=== PATIENT | male | born 1980 | race African-American/Black ===

== ENCOUNTER 2017-03-06 15:37 | Inpatient (IN) ==
--- NOTE | 2017-03-06 17:29 | Emergency Department Note ---
Disposition Clinical Impression: Diverticulitis Qualifiers: Diverticulitis site: unspecified part of intestinal tract Diverticulitis bleeding: without bleeding Diverticulitis complication: unspecified complication status Qualified Code(s): K57.92 - Diverticulitis of intestine, part unspecified, without perforation or abscess without bleeding Disposition: Admitted As Inpatient Condition: Good Referrals: NONE,PCP [Non-Partnered Physician] - Forms: Work/School Release, ED Satisfaction Letter Time of Disposition: 19:12 Abdominal Pain HPI - General Chief Complaint: ED Abdominal Pain Stated Complaint: RLQ Pain,fever Time Seen by Provider: 03/06/17 17:22 Source: patient Mode of arrival: ambulatory Limitations: no limitations Nursing Notes Reviewed: Yes Vital Signs Reviewed: Yes - History of Present Illness HPI Narrative: 36-year-old male who states was diagnosed with diverticulitis a few weeks back took antibiotics but did not complete them completely. Then again on Friday developed pain was started back on Levaquin and Flagyl his symptoms are not gotten any better. He's having pain across his lower abdomen. Pt Subjective Complaint: abdominal pain Onset (ago): day(s) Consistency: constant (4) Location: LLQ, RLQ, suprapubic Pain Severity: moderate Pain Scale: 7 Quality: aching, sharp Radiation: none Migration to: no migration Improves with: nothing Worsens with: nothing Associated symptoms: Reports: nausea, fever - Related Data Allergies Allergy/AdvReac Type Severity Reaction Status Date / Time No Known Allergies Allergy Verified 03/06/17 16:23 All systems ED: reviewed and negative except as stated. Constitutional: Denies: fever, chills, weakness, weight change Eyes: Denies: eye pain, eye discharge, vision change ENT ED: Denies: ear pain, throat pain, dental pain, hearing loss, epistaxis, congestion, dysphagia Cardiovascular: Denies: chest pain, palpitations, dyspnea on exertion, edema, syncope Respiratory: Denies: cough, dyspnea, wheezes, hemoptysis, stridor Gastrointestinal: Reports: abdominal pain. Denies: nausea, vomiting, diarrhea, constipation, hematemesis, melena, hematochezia Genitourinary: Denies: urgency, dysuria, frequency, hematuria Musculoskeletal: Denies: back pain, neck pain, arthralgia, myalgia Integumentary: Denies: rash, abrasion, lesions Neurological: Denies: headache, weakness, numbness, paresthesias, confusion, abnormal gait, vertigo Psychiatric: Denies: anxiety, depression, suicidal thoughts, homicidal thoughts , auditory hallucinations, visual hallucinations Endocrine: Denies: fatigue Hematological/Lymphatic: Denies: easy bleeding, easy bruising Allergic/Immunologic: Denies: facial swelling, urticaria Abdominal Pain PMH - Past Medical History Medical history: Reports: other Male Surgical History: Reports: no surgical history - Social History Smoking status: Never smoker Alcohol use: Reports: none Drug use: Reports: none Physical Exam - General Limitations: no limitations General appearance: alert - Head Head exam: atraumatic, normocephalic, normal inspection - Eye Eye exam: Present: normal appearance, PERRL, EOMI - ENT ENT exam: normal exam, normal oropharynx, mucous membranes moist - Neck Neck exam: Present: normal inspection, full ROM, trachea midline - Chest Chest inspection: Present: normal inspection, symmetric chest wall rise - Respiratory Respiratory exam: Present: normal lung sounds bilaterally - Cardiovascular Cardiovascular exam: Present: regular rate, normal rhythm, normal heart sounds - Abdominal Exam Abdominal exam: Present: tenderness. Absent: guarding, rebound Abdominal tenderness: Present: RLQ, LLQ - Extremities Exam Extremities exam: Present: normal inspection, full ROM. Absent: tenderness, pedal edema - Expanded Lower Extremity Exam Neurovascular/Tendon exam: Absent: motor deficit, sensory deficit, tendon deficit Gait: observed and normal - Back Exam Back exam: Present: normal inspection, full ROM. Absent: tenderness - Neurological Exam Neurological exam: Present: alert, oriented X3 - Psychiatric Psychiatric exam: Present: normal affect, normal mood - Skin Skin exam: Present: warm, dry, intact, normal color Course - Reevaluation(s) Reevaluation #1: 36-year-old who comes in with abdominal pain is getting worse. Patient was diagnosed with diverticulitis couple weeks ago was given antibiotics to complete a course he did get somewhat better and then when he stopped antibiotics after couple of days ago worse was restarted on antibiotics and is getting worse. He was on Levaquin and Flagyl. Time: 19:11 - Consultations Consultation #1: Discussed with , admit to hospitals. Time: 18:57 Consultation #2: Discussed with Mendy Perez nurse practitioner, admit Time: 19:11 Vital Signs Temperature 99.0 F 03/06/17 16:20 Pulse Rate 95 03/06/17 16:20 Respiratory Rate 18 03/06/17 16:20 Blood Pressure 132/88 03/06/17 16:20 O2 Sat by Pulse Oximetry 97 03/06/17 16:20 Temperature 99.0 F 03/06/17 16:20 Pulse Rate 90 03/06/17 17:32 Respiratory Rate 18 03/06/17 17:32 Blood Pressure 114/74 03/06/17 17:32 O2 Sat by Pulse Oximetry 100 03/06/17 17:32 Oxygen Delivery Oxygen Delivery Room Air Abdominal Pain - Lab Data Lab results reviewed: Yes I reviewed the patient's lab results. Result diagrams: 03/06/17 17:33 03/06/17 17:33 Lab Results 03/06/17 03/06/17 03/06/17 Range/Units 17:25 17:33 17:33 WBC 12.2 H (4.3-11.1) K/mcL RBC 4.83 (4.19-5.50) M/mcL Hgb 13.9 (12.9-16.9) g/dL Hct 42.9 (37.5-50.1) % MCV 88.8 (83.0-100.0) fL MCH 28.8 (28.0-33.3) pg MCHC 32.4 (31.6-35.5) g/dL RDW 13.5 (11.5-14.5) % Plt Count 169 (140-400) K/mcL MPV 10.1 (9.4-12.4) fL Immature Gran % 0.6 (0-4) % Seg Neutrophils % 71.2 % Lymphocytes % 12.6 % Monocytes % 12.4 % Eosinophils % 3.0 % Basophils % 0.2 % Neutrophils # 8.6 (1.6-8.9) K/mcL Lymphocytes # 1.5 (0.6-4.6) K/mcL Monocytes # 1.5 H (0.0-1.3) K/mcL Eosinophils # 0.4 (0.0-0.6) K/mcL Basophils # 0.0 (0.0-0.2) K/mcL Sodium 137 (136-145) mEq/L Potassium 3.7 (3.5-4.5) mEq/L Chloride 103 (98-109) mEq/L Carbon Dioxide 26 (19-29) mEq/L BUN 11 (8-26) mg/dL Creatinine 1.37 H (0.72-1.25) mg/dL Est GFR ( Amer) > 60 (> 60) Est GFR (Non-Af Amer) 58 L (> 60) BUN/Creatinine Ratio 8 (6-26) Glucose 90 (70-99) mg/dL Calculated Osmolality 283 (280-300) Lactic Acid (0.5-2.2) mmol/L Calcium 9.7 (8.6-10.8) mg/dL Total Bilirubin 0.5 (0.2-1.2) mg/dL Direct Bilirubin 0.3 (0.0-0.5) mg/dL Indirect Bilirubin 0.2 (0.0-1.2) mg/dL AST 13 (5-34) Units/L ALT 29 (0-55) Units/L Alkaline Phosphatase 61 (38-126) Units/L Serum Total Protein 7.8 (6.0-8.3) g/dL Albumin 3.3 L (3.5-5.0) g/dL Globulin 4.5 H (2.4-3.5) g/dL Albumin/Globulin Ratio 0.7 L (1.1-2.2) Amylase 44 (25-125) Units/L Lipase 34 (8-78) Units/L Urine Color Dark Yellow (Yellow) Urine Clarity Clear (Clear) Urine pH 6.0 (5.0-8.0) pH Units Ur Specific [place] 1.029 H (1.010-1.025) Urine Protein 30 H (Neg-Trace) mg/dL Urine Glucose (UA) Normal (Normal) mg/dL Urine Ketones Trace H (Negative) mg/dL Urine Blood Negative (Negative) Urine Nitrite Negative (Negative) Urine Bilirubin Negative (Negative) Urine Urobilinogen Normal (Normal) mg/dL Ur Leukocyte Esterase Small H (Negative) Urine Microscopic RBC 5-15 H (0-3) per hpf Urine Microscopic WBC 5-15 H (0-3) per hpf Ur Squamous Epith Cells Many H (None-Few) per lpf Urine Bacteria None Seen (None-Few) per hpf Hyaline Casts Few (None-Few) per lpf Ur Culture Indicated? YES A (NO) 03/06/17 Range/Units 17:33 WBC (4.3-11.1) K/mcL RBC (4.19-5.50) M/mcL Hgb (12.9-16.9) g/dL Hct (37.5-50.1) % MCV (83.0-100.0) fL MCH (28.0-33.3) pg MCHC (31.6-35.5) g/dL RDW (11.5-14.5) % Plt Count (140-400) K/mcL MPV (9.4-12.4) fL Immature Gran % (0-4) % Seg Neutrophils % % Lymphocytes % % Monocytes % % Eosinophils % % Basophils % % Neutrophils # (1.6-8.9) K/mcL Lymphocytes # (0.6-4.6) K/mcL Monocytes # (0.0-1.3) K/mcL Eosinophils # (0.0-0.6) K/mcL Basophils # (0.0-0.2) K/mcL Sodium (136-145) mEq/L Potassium (3.5-4.5) mEq/L Chloride (98-109) mEq/L Carbon Dioxide (19-29) mEq/L BUN (8-26) mg/dL Creatinine (0.72-1.25) mg/dL Est GFR ( Amer) (> 60) Est GFR (Non-Af Amer) (> 60) BUN/Creatinine Ratio (6-26) Glucose (70-99) mg/dL Calculated Osmolality (280-300) Lactic Acid 0.8 (0.5-2.2) mmol/L Calcium (8.6-10.8) mg/dL Total Bilirubin (0.2-1.2) mg/dL Direct Bilirubin (0.0-0.5) mg/dL Indirect Bilirubin (0.0-1.2) mg/dL AST (5-34) Units/L ALT (0-55) Units/L Alkaline Phosphatase (38-126) Units/L Serum Total Protein (6.0-8.3) g/dL Albumin (3.5-5.0) g/dL Globulin (2.4-3.5) g/dL Albumin/Globulin Ratio (1.1-2.2) Amylase (25-125) Units/L Lipase (8-78) Units/L Urine Color (Yellow) Urine Clarity (Clear) Urine pH (5.0-8.0) pH Units Ur Specific [place] (1.010-1.025) Urine Protein (Neg-Trace) mg/dL Urine Glucose (UA) (Normal) mg/dL Urine Ketones (Negative) mg/dL Urine Blood (Negative) Urine Nitrite (Negative) Urine Bilirubin (Negative) Urine Urobilinogen (Normal) mg/dL Ur Leukocyte Esterase (Negative) Urine Microscopic RBC (0-3) per hpf Urine Microscopic WBC (0-3) per hpf Ur Squamous Epith Cells (None-Few) per lpf Urine Bacteria (None-Few) per hpf Hyaline Casts (None-Few) per lpf Ur Culture Indicated? (NO) - Radiology Data Radiology results reviewed: Yes I reviewed the patient's radiology results. Abdomen/Pelvis CT 03/06/17 17:26 IMPRESSION: Right lower quadrant inflammatory changes centered about the terminal ileum and cecum worsened from 02/13/2017. Normal appendix. No definite extraluminal gas. Small foci of extraluminal soft tissue density that may represent ill-defined fluid collections versus phlegmon. Perforation not excluded. The underlying cause of the inflammatory process is uncertain with the differential including infectious etiologies versus inflammatory bowel disease versus diverticulitis. Trace volume of free fluid in the pelvis. D/ / Fabián Martin MD / Fabián Martin MD Interpreting Provider: Fabián Martin MD
[2017-03-06 17:34] LABS: Bilirubin,Urine Negative (Negative); Blood,Urine Negative (Negative); Clarity,Urine Clear (Clear); Color,Urine Dark Yellow (Yellow); Glucose,Urine (UA) Normal (Normal); Ketones,Urine Trace mg/dL (Negative); Leukocyte Esterase,Urine Small (Negative); Nitrite,Urine Negative (Negative); Protein,Urine 30 mg/dL (Neg-Trace); Specific Gravity,Urine 1.029 (1.010-1.025); Urobilinogen,Urine Normal (Normal)
[2017-03-06 17:36] LABS: Bacteria,Urine None Seen per hpf (None-Few); Hyaline Casts,Urine Few per lpf (None-Few); Squamous Epithelial Cell,Urine Many per lpf (None-Few)
[2017-03-06 17:40] LABS: Basophils % 0.2 %; Eosinophils # 0.4 K/mcL (0.0-0.6); Hematocrit 42.9 % (37.5-50.1); Hemoglobin 13.9 g/dL (12.9-16.9); Immature Granulocytes % 0.6 % (0-4); Lymphocytes # 1.5 K/mcL (0.6-4.6); Lymphocytes % 12.6 %; Mean Corpuscular HGB Conc 32.4 g/dL (31.6-35.5); Mean Corpuscular Hemoglobin 28.8 pg (28.0-33.3); Mean Corpuscular Volume 88.8 fL (83.0-100.0); Mean Platelet Volume 10.1 fL (9.4-12.4); Monocytes # 1.5 K/mcL (0.0-1.3); Monocytes % 12.4 %; Neutrophils # 8.6 K/mcL (1.6-8.9); Platelet Count 169 K/mcL (140-400); Red Blood Count 4.83 M/mcL (4.19-5.50); Red Cell Distribution Width 13.5 % (11.5-14.5); Segmented Neutrophils % 71.2 %
[2017-03-06 17:56] LABS: Alanine Aminotransferase 29 Units/L (0-55); Albumin 3.3 g/dL (3.5-5.0); Albumin/Globulin Ratio 0.7 (1.1-2.2); Alkaline Phosphatase 61 Units/L (38-126); Amylase 44 Units/L (25-125); Aspartate Amino Transferase 13 Units/L (5-34); BUN/Creatinine Ratio 8 (6-26); Bilirubin,Direct 0.3 mg/dL (0.0-0.5); Bilirubin,Indirect 0.2 mg/dL (0.0-1.2); Bilirubin,Total 0.5 mg/dL (0.2-1.2); Blood Urea Nitrogen 11 mg/dL (8-26); Calcium 9.7 mg/dL (8.6-10.8); Carbon Dioxide 26 mEq/L (19-29); Chloride 103 mEq/L (98-109); Globulin 4.5 g/dL (2.4-3.5); Glucose 90 mg/dL (70-99); Lipase 34 Units/L (8-78); Osmolality,Calculated 283 (280-300); Potassium 3.7 mEq/L (3.5-4.5); Sodium 137 mEq/L (136-145); Total Protein 7.8 g/dL (6.0-8.3); eGFR For African Americans > 60 (> 60); eGFR For Non-African Americans 58 (> 60)
[2017-03-06] MEDS ORDERED: Piperacillin/Tazobactam 3.375 GM in D5% in Water (Mini-Bag+) 100 ML IVPB ONE (18:57)
--- NOTE | 2017-03-06 20:50 | Event Note ---
Date of Encounter: 03/06/17 Time of Encounter: 20:46 Patient seen and examined with medical fee clerk. On 02/13 patient had right lower quadrant abdominal pain and a CT scan of the abdomen and pelvis with oral and IV contrast showed concern for diverticulitis and he received 10 days of ciprofloxacin Flagyl but stopped after 5 days only because his symptoms resolved. On Friday 4 days ago he started having similar symptoms seen his PCP was advised him to stay NPO and gave him a course of Levaquin and Flagyl of which he took 3 days. He notices no improvement in his symptoms and therefore came to the emergency room. A noncontrast CT scan of abdomen and pelvis without oral or IV contrast showed similar inflammatory process in the right lower quadrant. Appendix has been normal in both CT scans. No family history of inflammatory bowel disease. He has been having subjective fevers and shows at home. Differentials for the current presentation included an infectious process causing enteritis in the right lower quadrant such as salmonella, inflammatory process and advised him that several weeks after discharge she has to be evaluated by gastroenterology versus diverticulitis. We will start broader antibiotics in the form of Zosyn and flagyl. Hydrate, keep NPO. Surgery consultation
[2017-03-06] MEDS ORDERED: Acetaminophen 325 MG TABLET PO PRN (21:02)
[2017-03-06] MEDS ORDERED: *HR* OxyCODONE Immed Rel 5 MG TABLET PO PRN (21:02)
[2017-03-06] MEDS ORDERED: Naloxone 0.4 MG/ML INJ IVP PRN (21:02)
[2017-03-06] MEDS ORDERED: Ondansetron 4 MG/2 ML VIAL IVP PRN (21:02)
[2017-03-06] MEDS ORDERED: *HR* Morphine 2 MG/ML SYRINGE IVP PRN (21:02)
--- NOTE | 2017-03-06 21:12 | Internal Med History&Physical ---
Date of Encounter: 03/06/17 Time of Encounter: 21:06 Assessment and Plan (1) Abdominal pain Current visit: Yes Status: Acute 36 y/o Male cc of LLQ abdominal pain 2 weeks prior diagnosed with diverticulitis and started on 10 days FOR fragile which he only completed the first [address] scan abdomen/pelvis w/o contrast: Right lower quadrant inflammatory changes centered about the terminal ileum and cecum worsened from previous CT. Normal appendix. No definite extraluminal gas. Perforation not excluded. Denies family hx of inflammatory bowel disease 2nd to infectious process, diverticulits Plan: non surgical abdomen flagyl and zosyn NPO IVF stool panel Sugery notified Qualifiers: Abdominal location: left lower quadrant Qualified Code(s): R10.32 - Left lower quadrant pain (2) DVT prophylaxis Current visit: Yes Status: Acute heparin SQ Internal Medicine - H&P: HPI Chief complaint: abdominal pain Admitted From: Home Plans for Post Hospital Care: Home History of present illness: Mr. Levin is a 36 year old male hx of asthma presents with chief complaint of abdominal pain. Patient's abdominal pain started on Friday, June 12. Described as lower abdominal pain, sharp, mostly localized to right lower quadrant without radiation, associated with subjective fevers, chills, worsens with oral intake either fluids or solid food. Denies nausea, vomiting, melena, hematochezia, mucus in stool. Reports his stool has been loose. Reports increased urinary frequency but denies dysuria, hematuria. 2 weeks ago patient had similar symptoms of left lower quadrant sharp abdominal pain and was diagnosed with diverticulitis by his primary care physician. At that time CT scan showed Focal inflammatory change in terminal ileum, cecum and extraluminal gas adjacent to the cecum and terminal ileum, rule out appendicitis , and with contained perforation. He was given 10 days of Cipro and Flagyl. After 2 days of antibiotic treatment patient states his symptoms of left lower quadrant pain resolved, and by day 6 he stopped taking his antibiotics. As stated above last Friday patient started having abdominal pain the same location again and followed up with the nurse practitioner who prescribed him Levaquin and Flagyl however this does not improve his symptoms and thus he decided to show up to the ER. Past Med Surg Social Fam HX - Past Medical History Medical history: asthma, other Psychiatric history: no psych history - Past Surgical History Surgical History: no surgical history - Social History Smoking Status: Former smoker Smokeless Tobacco Status: No Alcohol use: none Drug use: none - Family History Mother Hx Family Cardiac Disorders: No Hx Family Respiratory Disorders: No Hx Family Cancer: No Hx Family GI Disorders: No Hx Family Genitourinary Disorders: No Hx Family Endocrine Disorder: No Hx Family Musculoskeletal Disorders: No Internal Medicine - H&P: Meds Albuterol Sulfate [Ventolin Hfa] 2 puff IH Q4H PRN 03/06/17 [History] Valacyclovir HCl [Valtrex] 1,000 mg PO AD 03/06/17 [History] levoFLOXacin [Levofloxacin] 750 mg PO DAILY 03/06/17 [History] metroNIDAZOLE [Flagyl] 500 mg PO TID 03/06/17 [History] Allergies No Known Allergies Allergy (Verified 03/06/17 16:23) All Systems PM: A 10-system review of systems was performed and is negative for pertinent findings except as documented above in the HPI. Review of systems: Constitutional: Reports subjective fevers, chills HEENT: Denies headache, vision changes, neck pain, sore throat, rhinorrhea Heart: Denies chest pain palpitations Lungs: Denies shortness of breath cough Abdomen: Reports sharp right lower quadrant abdominal pain that extends to the left lower quadrant, loose stools since Friday and one bite of diarrhea last night. Denies nausea, vomiting. Back: Denies back pain Kidney: Denies dysuria, hematuria. Reports frequency Extremities: Denies swelling, pain Neuro: Denies numbness, and tingling - Constitutional Vitals: Temp Pulse Resp BP Pulse Ox 98.1 F 90 14 111/71 97 03/06/17 20:25 03/06/17 20:25 03/06/17 20:25 03/06/17 20:25 03/06/17 20:25 - Other Additional findings: General: Alert and oriented to place time and situation. Without distress HEENT: Head atraumatic, normocephalic, EOMI, PERRLA, \ absent Lymphadenopathy, Moist Mucous Membranes, Heart: Sinus tachycardia without murmur Lungs: Clear to auscultation bilaterally Abdomen: Abdomen is soft, tender in the left lower quadrant, left mid quadrant, without signs of peritonitis, without guarding, with bowel sounds. Extremities: Absent pedal edema, Neuro: Cranial nerves II through XII intact, sensation equal bilaterally, strength upper and lower extremity 5/5, alert oriented 3 Vascular: Pedal and radialpulses 2 out of 4 Internal Med - H&P Results - Labs CBC & Chem 7: 03/06/17 17:33 03/06/17 17:33
[2017-03-06] MEDS: 0.9 % Sodium Chloride 1,000 ML IVC SCH (21:46)
[2017-03-06 23:25] LABS: Adenovirus F 40/41 PCR Not detected (Not detect); Astrovirus PCR Not detected (Not detect); C.difficile Toxin A/B by PCR See reflex test (Not detect); Campylobacter by PCR Not detected (Not detect); Cryptosporidium by PCR Not detected (Not detect); Cyclospora cayetanensis PCR Not detected (Not detect); E. coli O157 by PCR Not detected (Not detect); Entamoeba histolytica PCR Not detected (Not detect); Enteroaggregative E.coli(EAEC) Not detected (Not detect); Enteropathogenic E.coli(EPEC) Not detected (Not detect); Enterotoxigenic E.coli (ETEC) Not detected (Not detect); Giardia lamblia PCR Not detected (Not detect); Norovirus GI/GII PCR Not detected (Not detect); Plesiomonas shigelloides PCR Not detected (Not detect); Rotavirus A PCR Not detected (Not detect); Salmonella PCR Not detected (Not detect); Sapovirus PCR Not detected (Not detect); Shig/EnteroinvasiveE coli EIEC Not detected (Not detect); Shigalike tox-prod E coli STEC Not detected (Not detect); Vibrio PCR Not detected (Not detect); Vibrio cholerae PCR Not detected (Not detect); Yersinia enterocolitica PCR Not detected (Not detect)
[2017-03-06] MEDS: MetroNIDAZOLE 500 MG/100 ML 500 MG/100 ML BAG IVPB SCH (23:59)
[2017-03-07] MEDS: Piperacillin/Tazobactam 3.375 GM in D5% in Water (Mini-Bag+) 100 ML IVPB SCH ×2 (01:47→09:16)
[2017-03-07 04:27] LABS: Basophils # 0.1 K/mcL (0.0-0.2); Basophils % 0.5 %; Eosinophils # 0.3 K/mcL (0.0-0.6); Eosinophils % 2.9 %; Hematocrit 38.8 % (37.5-50.1); Hemoglobin 13.2 g/dL (12.9-16.9); Immature Granulocytes % 0.6 % (0-4); Lymphocytes # 1.5 K/mcL (0.6-4.6); Lymphocytes % 14.2 %; Mean Corpuscular Hemoglobin 29.8 pg (28.0-33.3); Mean Corpuscular Volume 87.6 fL (83.0-100.0); Mean Platelet Volume 10.1 fL (9.4-12.4); Monocytes # 1.3 K/mcL (0.0-1.3); Monocytes % 12.7 %; Neutrophils # 7.1 K/mcL (1.6-8.9); Platelet Count 169 K/mcL (140-400); Red Blood Count 4.43 M/mcL (4.19-5.50); Red Cell Distribution Width 13.4 % (11.5-14.5); Segmented Neutrophils % 69.1 %
[2017-03-07 04:45] LABS: BUN/Creatinine Ratio 9 (6-26); Blood Urea Nitrogen 12 mg/dL (8-26); Calcium 9.2 mg/dL (8.6-10.8); Carbon Dioxide 25 mEq/L (19-29); Chloride 105 mEq/L (98-109); Glucose 99 mg/dL (70-99); Osmolality,Calculated 288 (280-300); Potassium 3.6 mEq/L (3.5-4.5); Sodium 139 mEq/L (136-145); eGFR For African Americans > 60 (> 60); eGFR For Non-African Americans > 60 (> 60)
[2017-03-07] MEDS: MetroNIDAZOLE 500 MG/100 ML 500 MG/100 ML BAG IVPB SCH ×3 (09:16→23:51)
--- NOTE | 2017-03-07 13:55 | Internal Med Progress Note ---
Date of Encounter: 03/07/17 Time of Encounter: 08:55 - Assessment and plan (1) Abdominal pain Current Visit: Yes Status: Acute Assessment and plan: Left lower quadrant pain - likely secondary to C. difficile colitis and acute diverticulitis - symptoms slowly improving Continue IV Flagyl, IV Ciprofloxacin, IV fluids, IV morphine as needed for pain UA - leukocyte esterase C. difficile toxin - positive in stool CT abdomen and pelvis - right lower quadrant inflammatory changes centered around the terminal ileum and cecum small soft tissue density which could be ill -defined fluid collection, perforation not excluded Gen. surgery consult pending NPO, Labs in a.m. Qualifiers: Abdominal location: left lower quadrant Qualified Code(s): R10.32 - Left lower quadrant pain (2) DVT prophylaxis Current Visit: Yes Status: Acute Assessment and plan: Continue heparin subcutaneous - Time Spent With Patient 25 - 35 minutes - Subjective Interval history: Examined this morning. Patient is awake and alert. Not in any distress. Lying comfortably in bed. Denies chest pain or shortness of breath. Complains of mild left lower abdominal pain. States his diarrhea has now improved. No fever. No other acute events or complaints. CT of the abdomen and pelvis revealed inflammatory changes centered around the terminal ileum and cecum which were worse compared with previous CT. Patient's C. difficile toxin in stool is positive. Perforation not excluded. Surgery consult pending. IV antibiotics to be continued. - Constitutional Vitals: Temp Pulse Resp BP Pulse Ox 98.6 F 93 15 133/74 95 03/07/17 11:31 03/07/17 11:31 03/07/17 11:31 03/07/17 11:31 03/07/17 11:31 General appearance: Present: A&O X 3, pleasant, no acute distress, answers questions appropriately - Head Head exam: Present: atraumatic - Eye Eye exam: Present: EOMI - ENT ENT exam: Present: mucous membranes moist - Neck Neck exam general surgery: Present: supple - Respiratory Respiratory exam: Present: CTAB. Absent: rales, rhonchi, stridor, wheezes, tachypnea - Cardiovascular Cardiovascular exam: Present: RRR, +S1, +S2 - GI/Abdominal GI/Abdominal exam: Present: soft, tenderness (Mild left lower quadrant tenderness present), no peritoneal signs. Absent: distended, firm, guarding, rigid - Extremities Exam Extremities exam: Present: radial pulses palpable and symetrical. Absent: cyanotic, pedal edema, tenderness - Neurological Exam Neurological exam: Present: alert, oriented X3, no focal deficits Internal Medicine: Result - Labs CBC & Chem 7: 03/07/17 03:58 03/07/17 03:58 Labs: Short CBC 03/07/17 Range/Units 03:58 WBC 10.2 (4.3-11.1) K/mcL Hgb 13.2 (12.9-16.9) g/dL Hct 38.8 (37.5-50.1) % Plt Count 169 (140-400) K/mcL Neutrophils # 7.1 (1.6-8.9) K/mcL BMP 03/07/17 03:58 Sodium 139 Potassium 3.6 Chloride 105 Carbon Dioxide 25 BUN 12 Creatinine 1.27 H Glucose 99 Calcium 9.2 Consult Discharge Plan - Plan Referrals: Mariela Burnham MD [Primary Care Provider] -
--- NOTE | 2017-03-07 16:17 | General Surgery Consult Note ---
<Waldo Bolivar - Last Filed: 03/07/17 16:07> Date of Encounter: 03/07/17 Time of Encounter: 13:20 Assessment and Plan (1) Abdominal pain Current Visit: Yes Status: Acute Patient symptoms most-likely secondary to infection Continue broad spectrum antibiotic treatment, serial abdominal exams Repeat CT in 3-5 days Patient is currently not indicated for surgery. Surgery will keep monitoring him. Thank you. Qualifiers: Abdominal location: left lower quadrant Qualified Code(s): R10.32 - Left lower quadrant pain (2) DVT prophylaxis Current Visit: Yes Status: Acute Heparin 5000 unit for DVT prophylaxis History of Present Illness Consult date: 03/07/17 Reason for consult: abdominal pain History of present illness: 36 y/o male with past medical history of diverticulitis and asthma presents with left lower quadrant abdominal pain and fever for 5 days. Patient denies past surgical history. He was diagnosed with diverticulitis on 02/13/17 but stopped his antibiotic treatment on day 6 secondary to symptomatic relief. On , patient developed similar pain and went emergency department. Ct scan abdomen/pelvis w/o contrast indicates right lower quadrant inflammatory changes centered about the terminal ileum and cecum. Stool culture is positive for C. diff tox A/B PCR and patient is on contact precaution. Patient is currently on Flagyl 500mg at 100 mls/hour IVPB [id number] day 1. Past Med Surg Social Fam HX - Past Medical History Medical history: asthma, other (diverticulitis) Psychiatric history: no psych history - Past Surgical History Surgical History: no surgical history - Social History Smoking Status: Former smoker Smokeless Tobacco Status: No Alcohol use: none Drug use: none - Family History Mother Hx Family Cardiac Disorders: No Hx Family Respiratory Disorders: No Hx Family Cancer: No Hx Family GI Disorders: No Hx Family Genitourinary Disorders: No Hx Family Endocrine Disorder: No Hx Family Musculoskeletal Disorders: No Medications and Allergies Albuterol Sulfate [Ventolin Hfa] 2 puff IH Q4H PRN 03/06/17 [History] Valacyclovir HCl [Valtrex] 1,000 mg PO AD 03/06/17 [History] levoFLOXacin [Levofloxacin] 750 mg PO DAILY 03/06/17 [History] metroNIDAZOLE [Flagyl] 500 mg PO TID 03/06/17 [History] Allergies No Known Allergies Allergy (Verified 03/06/17 16:23) Review of Systems All systems PM: A 10-system review of systems was performed and is negative for pertinent findings except as documented above in the HPI. - Constitutional as per HPI, chills, fever(s), other (left lower abdominal pain), no headache(s) , no night sweats - EENT Nose, mouth and throat: no abnormal hearing, no headache(s), no hoarseness, no neck pain, no sinus pain - Cardiovascular no chest pain, no diaphoresis, no dyspnea - Respiratory no cough - Gastrointestinal abdominal pain (diffuse abdominal pain ), change in bowel habits, diarrhea, no constipation, no nausea, no vomiting General Surgery Exam Initial Vital Signs Temp Pulse Resp BP Pulse Ox 99.0 F 95 18 132/88 97 03/06/17 16:20 03/06/17 16:20 03/06/17 16:20 03/06/17 16:20 03/06/17 16:20 - General physical appearance well developed, well nourished, moderate distress - Eyes PERRL, normal ocular movement - ENT no hearing loss, no congestion, atraumatic, normocephalic, CN 2-12 grossly intact. negative: nasal discharge - Respiratory normal expansion, clear to percussion, clear to auscultation. negative: normal respiratory effort - Cardiovascular Cardiovascular exam: Present: RRR, no murmurs/rubs/gallops - Abdomen Abdomen general surgery: Present: bowel sounds present, tender (negative Rovsing 's. Tender diffusely. ), guarding. Absent: rebound, surgical scars, organomegaly Hernia: Present: none - Neurologic Present: CN 2-12 grossly intact, normal coordination, normal sensation Exam Initial Vital Signs Temp Pulse Resp BP Pulse Ox 99.0 F 95 18 132/88 97 03/06/17 16:20 03/06/17 16:20 03/06/17 16:20 03/06/17 16:20 03/06/17 16:20 Results - Labs 03/07/17 03:58 03/07/17 03:58 Abnormal lab results Creatinine 1.27 mg/dL (0.72-1.25) H 03/07/17 03:58 POC Glucose 91 (58-89) H 03/07/17 05:20 Albumin 3.3 g/dL (3.5-5.0) L 03/06/17 17:33 Globulin 4.5 g/dL (2.4-3.5) H 03/06/17 17:33 Albumin/Globulin Ratio 0.7 (1.1-2.2) L 03/06/17 17:33 Ur Specific [place] 1.029 (1.010-1.025) H 03/06/17 17:25 Urine Protein 30 mg/dL (Neg-Trace) H 03/06/17 17:25 Urine Ketones Trace mg/dL (Negative) H 03/06/17 17:25 Ur Leukocyte Esterase Small (Negative) H 03/06/17 17:25 Urine Microscopic RBC 5-15 per hpf (0-3) H 03/06/17 17:25 Urine Microscopic WBC 5-15 per hpf (0-3) H 03/06/17 17:25 Ur Squamous Epith Cells Many per lpf (None-Few) H 03/06/17 17:25 Ur Culture Indicated? YES (NO) A 03/06/17 17:25 Stl C. diff Tox A/B PCR See reflex test (Not detect) A 03/06/17 22:00 All other labs normal. Consult Discharge Plan - Plan Referrals: Mariela Burnham MD [Primary Care Provider] - <Umer Davis - Last Filed: 03/07/17 18:01> Date of Encounter: 03/07/17 Review of Systems All systems PM: A 10-system review of systems was performed and is negative for pertinent findings except as documented above in the HPI. General Surgery Exam Initial Vital Signs Temp Pulse Resp BP Pulse Ox 99.0 F 95 18 132/88 97 03/06/17 16:20 03/06/17 16:20 03/06/17 16:20 03/06/17 16:20 03/06/17 16:20 Exam Initial Vital Signs Temp Pulse Resp BP Pulse Ox 99.0 F 95 18 132/88 97 03/06/17 16:20 03/06/17 16:20 03/06/17 16:20 03/06/17 16:20 03/06/17 16:20 Results - Labs 03/07/17 03:58 03/07/17 03:58 Abnormal lab results Creatinine 1.27 mg/dL (0.72-1.25) H 03/07/17 03:58 POC Glucose 101 (58-89) H 03/07/17 16:46 Albumin 3.3 g/dL (3.5-5.0) L 03/06/17 17:33 Globulin 4.5 g/dL (2.4-3.5) H 03/06/17 17:33 Albumin/Globulin Ratio 0.7 (1.1-2.2) L 03/06/17 17:33 Ur Specific [place] 1.029 (1.010-1.025) H 03/06/17 17:25 Urine Protein 30 mg/dL (Neg-Trace) H 03/06/17 17:25 Urine Ketones Trace mg/dL (Negative) H 03/06/17 17:25 Ur Leukocyte Esterase Small (Negative) H 03/06/17 17:25 Urine Microscopic RBC 5-15 per hpf (0-3) H 03/06/17 17:25 Urine Microscopic WBC 5-15 per hpf (0-3) H 03/06/17 17:25 Ur Squamous Epith Cells Many per lpf (None-Few) H 03/06/17 17:25 Ur Culture Indicated? YES (NO) A 03/06/17 17:25 Stl C. diff Tox A/B PCR See reflex test (Not detect) A 03/06/17 22:00 All other labs normal. - Attending Attestation I examined this patient and my medical decision-making was reviewed with the Resident Physician. I agree with the documented findings, disposition and treatment plan as described except to the extent set forth below. The patient is seen in evaluated with rest in the morning rounds. Patient has a right lower quadrant phlegmon. I personally reviewed the CAT scan. There is no discrete abscess. We would recommend treating with broad-spectrum antibiotics. We will be glad to follow along with serial physical examinations to watch for any signs of clinical deterioration. He will require convalescent colonoscopy to try and identify the source of inflammation. Differential diagnosis is perforated appendicitis with diverticulitis. Umer Davis MD FACS
[2017-03-07] MEDS: *HR* Heparin 5,000 UNIT/ML VIAL SQ SCH (17:43)
[2017-03-08] MEDS: 0.9 % Sodium Chloride 1,000 ML IVC SCH ×2 (05:58→23:11)
[2017-03-08] MEDS: *HR* Heparin 5,000 UNIT/ML VIAL SQ SCH ×2 (05:59→17:42)
[2017-03-08 06:01] LABS: BUN/Creatinine Ratio 9 (6-26); Blood Urea Nitrogen 11 mg/dL (8-26); Calcium 9.1 mg/dL (8.6-10.8); Carbon Dioxide 26 mEq/L (19-29); Chloride 106 mEq/L (98-109); Glucose 92 mg/dL (70-99); Osmolality,Calculated 285 (280-300); Potassium 3.8 mEq/L (3.5-4.5); Sodium 138 mEq/L (136-145); eGFR For African Americans > 60 (> 60); eGFR For Non-African Americans > 60 (> 60)
[2017-03-08] MEDS: MetroNIDAZOLE 500 MG/100 ML 500 MG/100 ML BAG IVPB SCH ×3 (08:55→23:11)
--- NOTE | 2017-03-08 14:05 | Internal Med Progress Note ---
Date of Encounter: 03/08/17 Time of Encounter: 08:20 - Assessment and plan (1) Abdominal pain Current Visit: Yes Status: Acute Assessment and plan: Left lower quadrant pain - secondary to C. difficile colitis and mild acute diverticulitis - symptoms slowly improving Continue IV Flagyl, IV Ciprofloxacin, IV fluids, IV Morphine as needed for pain UA - leukocyte esterase present C. difficile toxin - positive in stool CT abdomen and pelvis - right lower quadrant inflammatory changes centered around the terminal ileum and cecum small soft tissue density which could be ill -defined fluid collection, perforation not excluded Gen. surgery consult - appreciate input, recommendations reviewed Advance to regular Diet Qualifiers: Abdominal location: left lower quadrant Qualified Code(s): R10.32 - Left lower quadrant pain (2) DVT prophylaxis Current Visit: Yes Status: Acute Assessment and plan: Continue heparin subcutaneous - Time Spent With Patient 25 - 35 minutes - Subjective Interval history: Examined this morning. Patient is awake and alert. Not in any distress. Lying comfortably in bed. Denies chest pain or shortness of breath. Complains of mild left lower abdominal pain, which is cramping. Diarrhea is now improving. States he feels better. No fever. Tolerating oral diet well. No other acute events or complaints. CT of the abdomen and pelvis revealed inflammatory changes centered around the terminal ileum and cecum which were worse compared with previous CT. Patient's C. difficile toxin in stool is positive. IV antibiotics to be continued. - Constitutional Vitals: Temp Pulse Resp BP Pulse Ox 98 F 76 18 131/78 95 03/08/17 09:56 03/08/17 09:56 03/08/17 09:56 03/08/17 09:56 03/08/17 09:56 General appearance: Present: A&O X 3, pleasant, no acute distress, answers questions appropriately - Head Head exam: Present: atraumatic - Eye Eye exam: Present: EOMI - ENT ENT exam: Present: mucous membranes moist - Neck Neck exam general surgery: Present: supple - Respiratory Respiratory exam: Present: CTAB. Absent: rales, rhonchi, wheezes, tachypnea - Cardiovascular Cardiovascular exam: Present: RRR, +S1, +S2 - GI/Abdominal GI/Abdominal exam: Present: soft, tenderness (Mild left lower quadrant tenderness, now improving). Absent: distended, firm, guarding - Extremities Exam Extremities exam: Present: radial pulses palpable and symetrical. Absent: cyanotic, pedal edema - Neurological Exam Neurological exam: Present: alert, oriented X3, no focal deficits Internal Medicine: Result - Labs CBC & Chem 7: 03/07/17 03:58 03/08/17 05:43 Labs: BMP 03/08/17 05:43 Sodium 138 Potassium 3.8 Chloride 106 Carbon Dioxide 26 BUN 11 Creatinine 1.20 Glucose 92 Calcium 9.1 Consult Discharge Plan - Plan Referrals: Mariela Burnham MD [Primary Care Provider] -
--- NOTE | 2017-03-08 15:56 | General Surgery Progress Note ---
<Ishan Taylor - Last Filed: 03/08/17 15:54> Date of Encounter: 03/08/17 Time of Encounter: 09:00 - Assessment and Plan (1) Abdominal pain Current Visit: Yes Status: Acute Due to C Diff colitis Patient is doing well on antibiotic therapy and we expect resolution of symptoms Patient does not require follow up CT scan for resolution unless clinical condition deteriorates. At this point, there is no indication for surgery at this time. Surgery will sign off. Patient should follow up with Dr. Davis in the office in 4 weeks. Thank you for involving us in this patient's care. Please feel free to contact us with any questions. Qualifiers: Abdominal location: left lower quadrant Qualified Code(s): R10.32 - Left lower quadrant pain Subjective Patient reports: no new complaints, feels better, tolerating liquids well, voiding w/o difficulty, flatus, bowel movement, diarrhea (x2 since last night), afebrile Objective Vital Signs - Last 8 Hours Temp Pulse Resp BP Pulse Ox 03/08/17 14:38 97.9 F 74 16 107/63 97 03/08/17 09:56 98 F 76 18 131/78 95 Intake and Output 03/07/17 03/08/17 03/08/17 23:59 07:59 15:59 Intake Total 780 / 780 360 / 360 632 / 632 Output Total 1025 / 1025 550 / 550 900 / 900 Balance -245 / -245 -190 / -190 -268 / -268 Intake: IV Fluids 300 / 300 300 / 300 152 / 152 0.9 % Sodium Chloride 1, 152 / 152 000 ML @ 75 mls/hr IVC . [id number] [facility] Rx#: [id number] Cipro Premix 400 MG/200 200 / 200 200 / 200 ML 400 mg In 200 ml @ 200 mls/hr IVPB Q12HR [facility] Rx #:[id number] Flagyl Premix 500 MG/100 100 / 100 100 / 100 ML 500 mg In 100 ml @ 100 mls/hr IVPB Q8HR [facility] Rx# :[id number] Oral 480 / 480 60 / 60 480 / 480 Output: Urine 1025 / 1025 550 / 550 900 / 900 Other: Meal Dinner Lunch Percent of Meal Consumed 100% # Voids 1 Weight 118.6 kg Blood Glucose* 101 Patient Weight 03/08/17 23:59 Weight 118.6 kg - General physical appearance well developed, well nourished, no distress - Eyes normal ocular movement - ENT atraumatic, normocephalic - Neck Neck exam: trachea midline - Respiratory normal expansion, normal respiratory effort, clear to auscultation - Cardiovascular Cardiovascular exam: Present: RRR - Abdomen Abdomen: Present: bowel sounds present, soft, non tender. Absent: distended, tender - Psychiatric speech is normal - Labs 03/07/17 03:58 03/08/17 05:43 Diabetes panel 03/08/17 Range/Units 05:43 Sodium 138 (136-145) mEq/L Potassium 3.8 (3.5-4.5) mEq/L Chloride 106 (98-109) mEq/L Carbon Dioxide 26 (19-29) mEq/L BUN 11 (8-26) mg/dL Creatinine 1.20 (0.72-1.25) mg/dL Glucose 92 (70-99) mg/dL Calcium 9.1 (8.6-10.8) mg/dL Calcium panel 03/08/17 Range/Units 05:43 Calcium 9.1 (8.6-10.8) mg/dL Pituitary panel 03/08/17 Range/Units 05:43 Sodium 138 (136-145) mEq/L Potassium 3.8 (3.5-4.5) mEq/L Chloride 106 (98-109) mEq/L Carbon Dioxide 26 (19-29) mEq/L BUN 11 (8-26) mg/dL Creatinine 1.20 (0.72-1.25) mg/dL Glucose 92 (70-99) mg/dL Calcium 9.1 (8.6-10.8) mg/dL Adrenal panel 03/08/17 Range/Units 05:43 Sodium 138 (136-145) mEq/L Potassium 3.8 (3.5-4.5) mEq/L Chloride 106 (98-109) mEq/L Carbon Dioxide 26 (19-29) mEq/L BUN 11 (8-26) mg/dL Creatinine 1.20 (0.72-1.25) mg/dL Glucose 92 (70-99) mg/dL Calcium 9.1 (8.6-10.8) mg/dL Consult Discharge Plan - Plan Additional Instructions: Follow up with Dr. Davis in the office in 4 weeks. Referrals: Mariela Burnham MD [Primary Care Provider] - Umer Davis MD [Partnered Physician] - <ReddJonh Alec - Last Filed: 03/08/17 22:30> Date of Encounter: 03/08/17 Objective Vital Signs - Last 8 Hours Temp Pulse Resp BP Pulse Ox 03/08/17 20:15 97.7 F 66 16 148/85 97 03/08/17 14:38 97.9 F 74 16 107/63 97 Intake and Output 03/08/17 03/08/17 03/08/17 07:59 15:59 23:59 Intake Total 360 / 360 732 / 732 1492 / 1492 Output Total 550 / 550 1250 / 1250 1200 / 1200 Balance -190 / -190 -518 / -518 292 / 292 Intake: IV Fluids 300 / 300 252 / 252 772 / 772 0.9 % Sodium Chloride 1, 152 / 152 472 / 472 000 ML @ 75 mls/hr IVC . [id number] [facility] Rx#: [id number] Cipro Premix 400 MG/200 200 / 200 200 / 200 ML 400 mg In 200 ml @ 200 mls/hr IVPB Q12HR [facility] Rx #:[id number] Flagyl Premix 500 MG/100 100 / 100 100 / 100 100 / 100 ML 500 mg In 100 ml @ 100 mls/hr IVPB Q8HR [facility] Rx# :[id number] Oral 60 / 60 480 / 480 720 / 720 Output: Urine 550 / 550 1250 / 1250 1200 / 1200 Other: Meal Lunch Dinner Percent of Meal Consumed 100% 95% # Voids 1 1 Weight 118.6 kg Patient Weight 03/08/17 23:59 Weight 118.6 kg - Labs 03/07/17 03:58 03/08/17 05:43 Diabetes panel 03/08/17 Range/Units 05:43 Sodium 138 (136-145) mEq/L Potassium 3.8 (3.5-4.5) mEq/L Chloride 106 (98-109) mEq/L Carbon Dioxide 26 (19-29) mEq/L BUN 11 (8-26) mg/dL Creatinine 1.20 (0.72-1.25) mg/dL Glucose 92 (70-99) mg/dL Calcium 9.1 (8.6-10.8) mg/dL Calcium panel 03/08/17 Range/Units 05:43 Calcium 9.1 (8.6-10.8) mg/dL Pituitary panel 03/08/17 Range/Units 05:43 Sodium 138 (136-145) mEq/L Potassium 3.8 (3.5-4.5) mEq/L Chloride 106 (98-109) mEq/L Carbon Dioxide 26 (19-29) mEq/L BUN 11 (8-26) mg/dL Creatinine 1.20 (0.72-1.25) mg/dL Glucose 92 (70-99) mg/dL Calcium 9.1 (8.6-10.8) mg/dL Adrenal panel 03/08/17 Range/Units 05:43 Sodium 138 (136-145) mEq/L Potassium 3.8 (3.5-4.5) mEq/L Chloride 106 (98-109) mEq/L Carbon Dioxide 26 (19-29) mEq/L BUN 11 (8-26) mg/dL Creatinine 1.20 (0.72-1.25) mg/dL Glucose 92 (70-99) mg/dL Calcium 9.1 (8.6-10.8) mg/dL - Attending Attestation I examined this patient and my medical decision-making was reviewed with the Resident Physician. I agree with the documented findings, disposition and treatment plan as described except to the extent set forth below. Review the above assessment and evaluation and agree with the above plan. Patient has significantly decreased pain and no pain to palpation in the right upper lower quadrant. Noted decrease in WBC. Recommend continue antibiotics for C. difficile colitis. Will sign off. His contact is fair any questions or concerns.
[2017-03-09] MEDS: *HR* Heparin 5,000 UNIT/ML VIAL SQ SCH (05:26)
[2017-03-09 07:31] VITALS: BP 116/72
[2017-03-09] MEDS: MetroNIDAZOLE 500 MG/100 ML 500 MG/100 ML BAG IVPB SCH (08:24)
--- NOTE | 2017-03-09 08:38 | Discharge Summary ---
Date of Encounter: 03/09/17 Time of Encounter: 08:00 - Discharge Diagnosis (1) Abdominal pain Priority: Primary Status: Acute Comments: Left lower quadrant pain and diarrhea - secondary to C. difficile colitis and mild acute diverticulitis Now improved continue PO Flagyl and Cipro, advised to take probiotics as well return if symptoms worsen Qualifiers: Abdominal location: left lower quadrant Qualified Code(s): R10.32 - Left lower quadrant pain - Discharge Medications Prescriptions: Ciprofloxacin HCl [Cipro] 500 mg PO BID 10 Days Lactobacillus Acidophilus [Acidophilus] 1 each PO DAILY 14 Days metroNIDAZOLE [Flagyl] 500 mg PO TID 10 Days Omeprazole [PriLOSEC] 20 mg PO DAILY@0630 #30 Home Medications: Albuterol Sulfate [Ventolin Hfa] 2 puff IH Q4H PRN 03/06/17 [History] Valacyclovir HCl [Valtrex] 1,000 mg PO AD 03/06/17 [History] Ciprofloxacin HCl [Cipro] 500 mg PO BID 10 Days 03/09/17 [Rx] Lactobacillus Acidophilus [Acidophilus] 1 each PO DAILY 14 Days 03/09/17 [Rx] Omeprazole [PriLOSEC] 20 mg PO DAILY@0630 #30 03/09/17 [Rx] metroNIDAZOLE [Flagyl] 500 mg PO TID 10 Days 03/09/17 [Rx] Allergies/Adverse Reactions: Allergies walnut Adverse Reaction (Verified 03/08/17 17:53) Nausea pet hair Adverse Reaction (Uncoded 03/08/17 17:54) Difficulty Breathing Date of admission: 03/07/17 16:02 Primary care physician: Mariela Burnham MD Anticipated date of discharge: 03/09/17 - Patient Status Disposition: Home, Self-Care Condition: Good Overall status at discharge: patient is back to baseline - Discharge Instructions Follow Up With: Umer Davis MD [Partnered Physician] - Mariela Burnham MD [Primary Care Provider] - Additional Instructions: Follow up with Dr. Davis in the office in 4 weeks. - Diet and Activity Activity: increase activity as tolerated Diet: low fat, low cholesterol Hospital course: Mr. Levin is a 36 year old male with past medical history of asthma. He presents to the ED with complaints of abdominal pain. He stated it was mainly in the right lower quadrant and not radiating. He had subjective fever chills and decreased appetite. Patient also complained of several episodes of diarrhea. Patient was diagnosed with acute uncomplicated diverticulitis about 2 weeks ago by his primary care physician. He was given 10 days of Cipro and Flagyl. Patient discontinued antibiotic treatment after a few days since his pain resolved. He then developed worsening abdominal pain. He then decided to come to the ER. Initial evaluation in the ED with CT scan of abdomen and pelvis revealed inflammatory changes around the terminal ileum and cecum, with small foci of a true luminal soft tissue density and a probable acute diverticulitis. Patient was also positive for C. difficile. He was admitted for C. difficile colitis and acute diverticulitis. Patient was initially Nothing by mouth. He was traveling on IV Flagyl and IV fluids and IV Cipro. He was on IV morphine as needed for pain. Urinalysis was positive for leukocyte esterase. Cultures are negative. General surgery has evaluated the patient and recommended conservative management with antibiotics. Advised to follow-up as outpatient. Patient's diet was slowly advanced to clear liquids and then to regular diet. His diarrhea slowly started to improve. Patient is tolerating oral diet well and ambulating well. Patient had no acute events or complications during the stay in the hospital. Patient states he feels better and wants to go home today. He has been advised about contact precautions given his C. difficile infection. Patient has been excellent about his condition and plan of care in detail. He understood and agreed. No unanswered questions. Patient states he will follow up with his primary care physician. He is being discharged on Flagyl and Cipro. Patient is being discharged in stable condition. - Time Spent with Patient Total time spent providing and/or coordinating discharge services: Less than 30 minutes - Constitutional Vitals: Temp Pulse Resp BP Pulse Ox 98.2 F 64 16 116/72 98 03/09/17 07:28 03/09/17 07:28 03/09/17 07:28 03/09/17 07:28 03/09/17 07:28 General appearance: Present: A&O X 3, pleasant, no acute distress, answers questions appropriately - Head Head exam: Present: atraumatic - Eye Eye exam: Present: EOMI - ENT ENT exam: Present: mucous membranes moist - Neck Neck exam general surgery: Present: supple - Respiratory Respiratory exam: Present: CTAB. Absent: rales, rhonchi, stridor, wheezes, tachypnea - Cardiovascular Cardiovascular exam: Present: RRR, +S1, +S2 - GI/Abdominal GI/Abdominal exam: Present: soft. Absent: distended, firm, guarding, rigid, tenderness - Extremities Exam Extremities exam: Present: radial pulses palpable and symetrical. Absent: cyanotic, tenderness - Neurological Exam Neurological exam: Present: alert, oriented X3, no focal deficits
== END 2017-03-09 10:10 | disposition home or self-care (01) | DRG 372 ==
LOC: EMEROO 15:37 → 3ANU 15:37
PROVIDERS: ADMIT Nurse Practitioner Acute Care; ATTEND Registered Nurse